=== PATIENT | male | born 1980 | race Caucasian/White ===

== ENCOUNTER 2020-02-03 11:35 | Emergency (ER) | payer MEDICARE ==
[~2020-02-03] VITALS: Ht 180.3 cm; Wt 84.5 kg
[2020-02-03] MEDS ORDERED: GABA-1181 PO (11:43)
[2020-02-03] MEDS ORDERED: IBUP-2070 PO (11:43)
[2020-02-03] MEDS ORDERED: CEPHALEXIN MONOHYDRATE 500 MG CAPSULE PO ONE (13:45)
[2020-02-03] MEDS ORDERED: IBUPROFEN 800 MG TABLET PO ONE (13:45)
[2020-02-03] MEDS ORDERED: BUPIVACAINE HCL/PF 0.25% 10 ML VIAL INJ ONE (13:45)
[2020-02-03] MEDS ORDERED: POVIDONE-IODINE 10% 15 ML SOLUTION UD TP ONE (13:45)
[2020-02-03] MEDS ORDERED: LIDOCAINE 1% 10 ML VIAL INJ ONE (13:45)
[2020-02-03 16:00] VITALS: BP 114/87
== END 2020-02-03 16:41 | disposition home or self-care (01) ==
LOC: EMS 11:42
DX: L60.0 Ingrowing nail (principal); L73.9 Follicular disorder, unspecified
CPT/HCPCS: 11730; 99284; J3490 ×2

== ENCOUNTER 2020-02-06 13:03 | Emergency (ER) | payer MEDICAID, MEDICARE ==
[~2020-02-06] VITALS: Ht 180.3 cm; Wt 81.8 kg
[~2020-02-06 13:03] MED LIST: GABA-1181 PO; IBUP-2070 PO
[2020-02-06 13:06] VITALS: BP 118/69
[2020-02-06] MEDS ORDERED: CEPH-581 PO (13:08)
[2020-02-06] MEDS ORDERED: DiphenhydrAMINE HCL 50 MG CAPSULE PO ONE (14:00)
[2020-02-06] MEDS ORDERED: PredniSONE 20 MG TABLET PO ONE (14:00)
[2020-02-06] MEDS ORDERED: CEPH500 PO (14:01)
== END 2020-02-06 14:23 | disposition home or self-care (01) ==
LOC: EMS 13:05
DX: T78.40XA Allergy, unspecified, initial encounter (principal); X58.XXXA Exposure to other specified factors, initial encounter; Z88.5 Allergy status to narcotic agent
CPT/HCPCS: 99283; J7512